=== PATIENT | male | born 1960 | race Caucasian/White ===

== ENCOUNTER 2019-01-20 20:51 | Emergency (ER) | payer SELFPAY ==
--- NOTE | 2019-01-20 21:27 | ER Document Report ---
ED Medical Screen (RME) - General Chief Complaint: ETOH Abuse Stated Complaint: DETOX,ALCOHOL ABUSE Time Seen by Provider: 01/20/19 21:21 Mode of Arrival: Wheelchair Information source: Patient Notes: 58-year-old male presented to ED for request requesting detox for alcoholism. He states his last beer was at 6 PM tonight. He states she had at least 12 or more beers today. He states he smokes about 30 cigarettes a day and drinks every day. He states he does not use any drugs. I have reviewed his medical history. He states he needs to get off the alcohol. Patient is alert and oriented and answering questions. He was brought to the emergency room brought from [place]. I have greeted and performed a rapid initial assessment of this patient. A comprehensive ED assessment and evaluation of the patient, analysis of test results and completion of medical decision making process will be conducted by an additional ED providers. Past Medical History - General Information source: Patient - Social History Cigarette use (# per day): Yes Frequency of alcohol use: Heavy Drug Abuse: None Lives with: Family Family history: Reviewed & Not Pertinent - Past Medical History Cardiac Medical History: Reports: Hx Coronary Artery Disease, Hx Heart Attack, Hx Hypercholesterolemia, Hx Hypertension Denies: Hx DVT, Hx Pulmonary Embolism Pulmonary Medical History: Reports: Hx Bronchitis, Hx COPD Denies: Hx Pneumonia EENT Medical History: Reports: None Neurological Medical History: Reports: None Endocrine Medical History: Reports: None Renal/ Medical History: Reports: None Malignancy Medical History: Reports None GI Medical History: Reports: Hx Diverticulitis Musculoskeltal Medical History: Reports Hx Arthritis, Reports Hx Musculoskeletal Deformity Skin Medical History: Reports None Psychiatric Medical History: Reports: None Traumatic Medical History: Reports: None Infectious Medical History: Reports: None Past Surgical History: Reports: Hx Abdominal Surgery, Hx Bowel Surgery Physical Exam - Vital signs Vitals: Temp Pulse Resp BP Pulse Ox 98.3 F 117 H 18 153/101 H 99 01/20/19 21:03 01/20/19 21:03 01/20/19 21:03 01/20/19 21:03 01/20/19 21:03 Course - Vital Signs Vital signs: Temp Pulse Resp BP Pulse Ox 98.3 F 117 H 18 153/101 H 99 01/20/19 21:03 01/20/19 21:03 01/20/19 21:03 01/20/19 21:03 01/20/19 21:03
[2019-01-20 22:20] LABS: ABSOLUTE MONOCYTES (AUTO) 0.4 10^3/uL (0.1-1.4); TOTAL CELLS COUNTED % (AUTO) 100 %; WHITE BLOOD COUNT 8.1 10^3/uL (4.0-10.5)
[2019-01-20 22:22] LABS: ABSOLUTE BASOPHILS # (AUTO) 0.1 10^3/uL (0.0-0.2); ABSOLUTE LYMPHOCYTES (AUTO) 2.3 10^3/uL (0.5-4.7); ABSOLUTE NEUT (AUTO) 5.3 10^3/uL (1.7-8.2); BASOPHILS % (AUTO) 1.3 % (0-2); EOSINOPHILS % (AUTO) 0.6 % (0-6); HEMATOCRIT 44.9 % (37.9-51.0); HEMOGLOBIN 15.1 g/dL (13.5-17.0); LYMPHOCYTES % (AUTO) 28.5 % (13-45); MEAN CORPUSCULAR HEMOGLOBIN 32.6 pg (27.0-33.4); MEAN CORPUSCULAR HGB CONC 33.6 g/dL (32.0-36.0); MEAN CORPUSCULAR VOLUME 97 fl (80-97); MONOCYTES % (AUTO) 4.5 % (3-13); PLATELET COUNT 230 10^3/uL (150-450); RED BLOOD COUNT 4.63 10^6/uL (4.35-5.55); SEGMENTED NEUTROPHILS % (AUTO) 65.1 % (42-78)
[2019-01-20 22:33] LABS: ALBUMIN 4.3 g/dL (3.5-5.0); ALCOHOL 272 mg/dL (NONE DETECTED); ALKALINE PHOSPHATASE 158 U/L (38-126); ANION GAP 14 (5-19); ASPARTATE AMINO TRANSFERASE 82 U/L (17-59); BILIRUBIN,DIRECT 0.2 mg/dL (0.0-0.4); BILIRUBIN,TOTAL 0.5 mg/dL (0.2-1.3); BLOOD UREA NITROGEN 6 mg/dL (7-20); CALCIUM 9.3 mg/dL (8.4-10.2); CARBON DIOXIDE 22 mmol/L (22-30); CHLORIDE 100 mmol/L (98-107); GLUCOSE 106 mg/dL (75-110); POTASSIUM 4.5 mmol/L (3.6-5.0); TOTAL PROTEIN 7.5 g/dL (6.3-8.2)
[2019-01-20 22:34] LABS: ACETAMINOPHEN < 10 ug/mL (10-30); SALICYLATE < 1.0 mg/dL (2.0-20.0)
--- NOTE | 2019-01-20 22:38 | EKG REPORT ---
SEVERITY:- ABNORMAL ECG - SINUS RHYTHM CONSIDER ANTEROSEPTAL INFARCT ABNORMAL T, CONSIDER ISCHEMIA, DIFFUSE LEADS : Confirmed by: Lelo Hsu MD 20-Jan-2019 22:37:57
[2019-01-20] MEDS ORDERED: LORAZEPAM INJ 2 MG/1 ML VIAL IV ONE (22:54)
[2019-01-20] MEDS ORDERED: NORMAL SALINE 1000 ML 1,000 ML IV ONE (22:54)
[2019-01-21 00:25] LABS: APPEARANCE,URINE CLEAR; BILIRUBIN,URINE NEGATIVE (NEGATIVE); COLOR,URINE YELLOW; GLUCOSE, URINE NEGATIVE (NEGATIVE); KETONES,URINE NEGATIVE (NEGATIVE); LEUKOCYTE ESTERASE,URINE NEGATIVE (NEGATIVE); NITRITE,URINE NEGATIVE (NEGATIVE); PROTEIN,URINE NEGATIVE (NEGATIVE); URINE SPECIFIC GRAVITY 1.003; UROBILINOGEN,URINE NEGATIVE mg/dL (<2.0)
[2019-01-21 00:48] LABS: URINE AMPHETAMINES SCREEN NEGATIVE; URINE BARBITURATES SCREEN NEGATIVE; URINE BENZODIAZEPINES SCREEN NEGATIVE; URINE COCAINE SCREEN NEGATIVE; URINE MARIJUANA (THC) SCREEN NEGATIVE; URINE METHADONE SCREEN NEGATIVE; URINE PHENCYCLIDINE SCREEN NEGATIVE
[2019-01-21] MEDS ORDERED: FOLIC ACID 1 MG TABLET PO ONE (01:30)
[2019-01-21 02:31] VITALS: BP 103/58
--- NOTE | 2019-01-21 02:33 | ER Document Report ---
Entered by ANA BOWDEN SCRIBE 01/20/19 [id number] Acting as scribe for:TJ BRYAN DO ED General - General Chief Complaint: ETOH Abuse Stated Complaint: DETOX,ALCOHOL ABUSE Time Seen by Provider: 01/20/19 21:21 Mode of Arrival: Wheelchair Information source: Patient Notes: Patient is a 58-year-old male who presents to the emergency department today for alcohol detox. Patient states that he drinks 12-18 beers a day. Patient states he went to the [facility] for detox but his alcohol was "2.7 and they cannot keep me unless it is under 2.5". Patient has no complaints. Patient denies any chest pain. - Related Data Allergies/Adverse Reactions: No Known Allergies Allergy (Verified 01/20/19 21:28) Past Medical History - General Information source: Patient - Social History Smoking Status: Current Every Day Smoker Cigarette use (# per day): Yes Chew tobacco use (# tins/day): No Frequency of alcohol use: Heavy - 12-18 beers daily Drug Abuse: None Lives with: Family Family History: Reviewed & Not Pertinent Patient has suicidal ideation: No Patient has homicidal ideation: No - Past Medical History Cardiac Medical History: Reports: Hx Coronary Artery Disease, Hx Heart Attack, Hx Hypercholesterolemia, Hx Hypertension Pulmonary Medical History: Reports: Hx Bronchitis, Hx COPD EENT Medical History: Reports: None Neurological Medical History: Reports: None Endocrine Medical History: Reports: None Renal/ Medical History: Reports: None Malignancy Medical History: Reports None GI Medical History: Reports: Hx Diverticulitis Musculoskeletal Medical History: Reports Hx Arthritis, Reports Hx Musculoskeletal Deformity Skin Medical History: Reports None Psychiatric Medical History: Reports: None Traumatic Medical History: Reports: None Infectious Medical History: Reports: None Past Surgical History: Reports: Hx Abdominal Surgery, Hx Bowel Surgery Review of Systems - Review of Systems Constitutional: See HPI, Other - Alcoholic. Wishes to go to detox but alcohol level is too high. EENT: No symptoms reported Cardiovascular: denies: Chest pain Respiratory: No symptoms reported Gastrointestinal: No symptoms reported Genitourinary: No symptoms reported Male Genitourinary: No symptoms reported Musculoskeletal: No symptoms reported Skin: No symptoms reported Hematologic/Lymphatic: No symptoms reported Neurological/Psychological: No symptoms reported -: Yes All other systems reviewed and negative Physical Exam - Vital signs Vitals: Temp Pulse Resp BP Pulse Ox 98.3 F 117 H 18 153/101 H 99 01/20/19 21:03 01/20/19 21:03 01/20/19 21:03 01/20/19 21:03 01/20/19 21:03 - Notes Notes: Physical Exam: General: Alert, intoxicated. HEENT: Normocephalic. Atraumatic. PERRL. Extraocular movements intact. Oropharynx clear. Neck: Supple. Non-tender. Respiratory: No respiratory distress. Clear and equal breath sounds bilaterally. Cardiovascular: Tachycardic, regular rhythm. Abdominal: Normal Inspection. Non-tender. No distension. Normal Bowel Sounds. Back: No gross abnormalities. Extremities: Moves all four extremities. Upper extremities: Normal inspection. Normal ROM. Lower extremities: Normal inspection. No edema. Normal ROM. Neurological: Normal cognition. AAOx4. Normal speech. Psychological: Normal affect. Normal Mood. Skin: Warm. Dry. Normal color. Course - Re-evaluation Re-evalutation: 01/21/19 02:30 Patient is a 58-year-old male who comes in because he needs to have an alcohol under 250 before he will be accepted at [facility]. Patient drinks 12- 18 beers a day. Initial alcohol 279 it is now under 250. Patient has had no complaints. EKG with ST depression. Troponin negative x2. Patient was initially tachycardic and hypertensive that is resolved with Ativan. Still with no complaints. Resting comfortably. He will be discharged to [place]. Nurse has discussed this with [facility] and they are agreeable to taking the patient. Stable for discharge to [facility]. - Vital Signs Vital signs: Temp Pulse Resp BP Pulse Ox 98.3 F 117 H 18 153/101 H 99 01/20/19 21:03 01/20/19 21:03 01/20/19 21:03 01/20/19 21:03 01/20/19 21:03 - Laboratory Result Diagrams: 01/20/19 21:50 01/20/19 21:50 Laboratory results interpreted by me: 01/20/19 01/20/19 21:50 21:50 RDW 16.0 H Sodium 135.5 L BUN 6 L AST 82 H Alkaline Phosphatase 158 H Salicylates < 1.0 L Acetaminophen < 10 L - Diagnostic Test Radiology reviewed: Reports reviewed - EKG Interpretation by Me Rate: Tachycardia When compared to previous EKG there are: Other - No previous EKG. ST depression. Discharge - Discharge Clinical Impression: Alcohol abuse Alcohol withdrawal Qualifiers: Complication of substance-induced condition: uncomplicated Qualified Code(s): F10.230 - Alcohol dependence with withdrawal, uncomplicated Condition: Stable Disposition: OTHER Additional Instructions: Please go directly to [facility] for detox from alcohol. Please return if you have any further concerns or symptoms. I personally performed the services described in the documentation, reviewed and edited the documentation which was dictated to the scribe in my presence, and it accurately records my words and actions.
== END 2019-01-21 03:02 | disposition other institution (70) ==
LOC: ER 20:51
DX: F10.230 Alcohol dependence with withdrawal, uncomplicated (principal); Y90.8 Blood alcohol level of 240 mg/100 ml or more; F17.210 Nicotine dependence, cigarettes, uncomplicated; I25.10 Atherosclerotic heart disease of native coronary artery without angina pectoris; E78.00 Pure hypercholesterolemia, unspecified; I10 Essential (primary) hypertension; I25.2 Old myocardial infarction
CPT/HCPCS: 93005; 36415; 80307 ×4; 85025; 80053; 81001; 84484; 93010; J2060; J7030; 96361; 96374; 99285